=== PATIENT | female | born 1975 ===

== ENCOUNTER 2018-03-23 06:19 | Day surgery (SDC) | payer BC ==
[2018-03-23] MEDS ORDERED: Propofol 10 mg/ml Inj (20 ML) ONE ×2 (07:49→08:39)
[2018-03-23] MEDS ORDERED: Lidocaine PF 2% (5 ml) Inj (For Cardiac Arrhy) ONE (07:49)
[2018-03-23] MEDS ORDERED: Sodium Chloride 0.9% 1,000 ML IV SCH (09:00)
[2018-03-23 09:26] VITALS: O2SAT 100
[2018-03-23 09:52] VITALS: BP 106/61; PULSE 67; RESP 16; TEMP 98.4
== END 2018-03-23 10:25 | disposition home or self-care (01) ==
LOC: ENDO 06:19
PROVIDERS: ATTEND Internal Medicine Gastroenterology
DX: D50.9 Iron deficiency anemia, unspecified (principal); K64.0 First degree hemorrhoids; K64.4 Residual hemorrhoidal skin tags; K29.50 Unspecified chronic gastritis without bleeding; B96.81 Helicobacter pylori [H. pylori] as the cause of diseases classified elsewhere; Z80.1 Family history of malignant neoplasm of trachea, bronchus and lung
CPT/HCPCS: 43239; 45378; 84703; 88305; 88342; J2704; J7030; J7040